=== PATIENT | male | born 1990 | race Caucasian/White ===

== ENCOUNTER 2020-08-23 09:03 | Emergency (ER) | payer OTHER | END 2020-08-23 10:59 | disposition home or self-care (01) | LOC: ER1 09:03 | DX: S46.912A Strain of unspecified muscle, fascia and tendon at shoulder and upper arm level, left arm, initial encounter (principal); X50.0XXA Overexertion from strenuous movement or load, initial encounter | CPT/HCPCS: 73030; 96372; 99283; J1885 ==